=== PATIENT | female | born 2000 | race Caucasian/White ===

== ENCOUNTER 2018-03-17 15:24 | Inpatient (IN) ==
[2018-03-17] MEDS ORDERED: Tetanus/Diphtheria Toxoid Adult Vaccine Inj 0.5 ML Vial IM ONE (17:13)
--- NOTE | 2018-03-17 17:14 | ED ---
HPI General Chief Complaint: Psychiatric Symptoms Stated Complaint: eval Time Seen by Provider: 03/17/18 16:11 Source: patient Mode of arrival: ambulatory Limitations: no limitations History of Present Illness HPI Narrative: 17-year-old female presents to the emergency department voluntarily for psychological evaluation. Says she has had depression since she was about 4 years old and over the past couple months it is worsened, with worsening over the past 2 weeks. She says she is "not feeling safe by myself." She has been self cutting more than normal. Reports feeling suicidal. Does not have a specific plan. Says she thinks of all possibilities and chances to harm herself. Denies homicidal ideations. Reports history of suicidal attempt by overdosing multiple times. Denies auditory or visual hallucinations. Denies chest pain, shortness breath, abdominal pain, nausea, vomiting, fevers, change in stool. Says her urine appears cloudy, but she does not know if it is coming from her vagina or if it is her urine. She says she may have abnormal vaginal discharge, but cannot answer yes or no. Denies abnormal vaginal odor. Says her depression is aggravated by cutting herself. She says she thinks about what she did and then it makes her more depressed. No known relieving factors. Symptoms are moderate to severe in severity. Onset unknown. Duration chronic. No known allergies. No psychiatrist. No primary care provider. History of depression, bipolar disorder. Denies other significant past medical history. Has no other medical complaints. No other modifying factors or associated signs and symptoms. Related Data Allergies Allergy/AdvReac Type Severity Reaction Status Date / Time No Known Allergies Allergy Uncoded 07/10/16 19:46 Review of Systems ROS: all other systems reviewed are negative [facility] Social History Social History Substance History: Active Abuse Second Hand Smoke Exposure: Yes Smoking Status: Never smoker Tobacco Type: Cigarettes How Often Do You Have a Drink Containing Alcohol: Never Recent Travel in [facility] within the Last 8 Weeks: No Recent Out of Country Travel within the Last 8 Weeks: No Substance Abuse Detail LSD, Mushrooms: Substance Use Status: Active Route Used Substance Abuse: By Mouth Reason for Use: Feels Good Marijuana: Substance Use Status: Active Route Used Substance Abuse: Inhalation Reason for Use: Feels Good Exam Narrative Exam Narrative: GENERAL: Well-nourished, well-developed female patient , in no acute distress SKIN: Warm and dry. Right anterior thigh with multiple superficial cuts. No drainage, no surrounding cellulitis. No signs of infection. HEAD: Atraumatic. Normocephalic. EYES: Pupils equal and round. ENT: Mucosa pink and moist. NECK: Supple. Trachea midline. CARDIOVASCULAR: Regular rate and rhythm. No murmur appreciated. RESPIRATORY: No accessory muscle use. Clear to auscultation. Breath sounds equal bilaterally. GASTROINTESTINAL: Abdomen soft, non-tender, nondistended. Hepatic and splenic margins not palpable. Bowel sounds are active 4 quadrants. MUSCULOSKELETAL: No obvious deformities. No clubbing. No cyanosis. No edema. BACK: No CVA tenderness. NEUROLOGICAL: Awake and alert. Oriented 3. No obvious cranial nerve deficits. Motor grossly within normal limits. Normal speech. Moves all extremities. 5/5 strength to all extremities. PSYCHIATRIC: No delusional thought processes. No hallucinations. Course Initial Documented Vital Signs Temperature 99.4 F 03/17/18 15:26 Pulse Rate 130 H 03/17/18 15:26 Respiratory Rate 17 03/17/18 15:26 Blood Pressure 132/72 03/17/18 15:26 Pulse Oximetry 97 03/17/18 15:26 Last Documented Vital Signs Temperature 98.5 F 03/20/18 06:07 Pulse Rate 73 03/20/18 06:07 Respiratory Rate 16 03/20/18 06:07 Blood Pressure 97/51 L 03/20/18 06:07 Pulse Oximetry 98 03/20/18 06:07 Medical Decision Making [facility] Narrative Medical decision making narrative: Patient presents voluntarily. Physical examination and vital signs are essentially unremarkable. Patient is complaining of cloudy urine and possibility of vaginal discharge. I will check a urinalysis and check a urine chlamydia/gonorrhea. Psych screen has been ordered. If the laboratory results are unremarkable, the patient will be medically cleared for psychiatric evaluation and disposition. Medical Screen Exam Complete: Yes Emergency Medical Condition: Yes Differential Diagnosis Differential Diagnosis: Depression, suicidal ideation, UTI, chlamydia, gonorrhea , medical clearance for psychiatric evaluation Lab Data Result diagrams: 03/17/18 17:00 03/17/18 17:00 POC Results POC Urine Results Negative Lab Results 03/17/18 03/17/18 03/17/18 Range/Units 17:00 17:00 17:00 WBC 10.8 (4.0-11.0) th/mm3 RBC 4.54 (4.00-5.30) mil/mm3 Hgb 12.8 (11.6-15.3) gm/dL Hct 37.5 (35.0-46.0) % MCV 82.6 (80.0-100.0) fL MCH 28.1 (27.0-34.0) pg MCHC 34.0 (32.0-36.0) % RDW 19.0 H (11.6-17.2) % Plt Count 268 (150-450) th/mm3 MPV 9.2 (7.0-11.0) fL Neut % (Auto) 72.0 H (16.0-70.0) % Lymph % (Auto) 18.4 (9.0-44.0) % King % (Auto) 7.8 (0.0-8.0) % Eos % (Auto) 0.8 (0.0-4.0) % Baso % (Auto) 1.0 (0.0-2.0) % Neut # (Auto) 7.8 H (1.8-7.7) th/mm3 Lymph # (Auto) 2.0 (1.0-4.8) th/mm3 King # (Auto) 0.8 (0.0-0.9) th/mm3 Eos # (Auto) 0.1 (0.0-0.4) th/mm3 Baso # (Auto) 0.1 (0.0-0.2) th/mm3 WBC Differential . Differential Comment Auto diff final Sodium (136-145) meq/L Potassium (3.5-5.1) meq/L Chloride (98-107) meq/L Carbon Dioxide (21.0-32.0) meq/L Anion Gap (5-15) meq/L BUN (7-18) mg/dL Creatinine (0.50-1.00) mg/dL Estimated GFR (>89) mL/min Random Glucose (74-106) mg/dL Hemoglobin A1c (4.3-6.0) % Calcium (8.5-10.1) mg/dL Total Bilirubin (0.2-1.0) mg/dL AST (16-38) U/L ALT (9-42) U/L Alkaline Phosphatase (45-117) U/L Total Protein (6.4-8.2) g/dL Albumin (3.4-5.0) g/dL Triglycerides (42-150) mg/dL Cholesterol (120-200) mg/dL LDL Cholesterol, Calc (0-99) mg/dL HDL Cholesterol (40.0-60.0) mg/dL Cholesterol/HDL Ratio Ratio TSH (0.358-3.740) uIU/mL Urine Color (Yellw/Straw) Urine Clarity (Clear) Urine pH (5.0-8.5) Ur Specific [place] (1.002-1.035) Urine Protein (Neg-Trace) mg/dL Urine Glucose (UA) (Negative) mg/dL Urine Ketones (Negative) mg/dL Urine Occult Blood (Negative) Urine Nitrate (Negative) Urine Bilirubin (Negative) Urine Urobilinogen (Less than 2) mg/dL Ur Leukocyte Esterase (Negative) Urine RBC (0-3) /hpf Urine WBC (0-5) /hpf Ur Squamous Epith Cells (0-5) /hpf Urine Bacteria (None) /hpf Urine Mucus (Occasional) /lpf Micro UA Comment Urine Culture Comments Salicylates Less than 1.7 L (2.8-20.0) mg/dL Urine Opiates Screen (Neg) Acetaminophen Cancelled Ur Barbiturates Screen (Neg) Ur Amphetamines Screen (Neg) U Benzodiazepines Scrn (Neg) Urine Cocaine Screen (Neg) U Cannabinoids Screen (Neg) Serum Alcohol (0-5) mg/dL Chlam trachomat DNA PCR (Not Detect) N.gonorrhoeae DNA (PCR) (Not Detect) 03/17/18 03/17/18 03/17/18 Range/Units 17:00 20:40 23:05 WBC (4.0-11.0) th/mm3 RBC (4.00-5.30) mil/mm3 Hgb (11.6-15.3) gm/dL Hct (35.0-46.0) % MCV (80.0-100.0) fL MCH (27.0-34.0) pg MCHC (32.0-36.0) % RDW (11.6-17.2) % Plt Count (150-450) th/mm3 MPV (7.0-11.0) fL Neut % (Auto) (16.0-70.0) % Lymph % (Auto) (9.0-44.0) % King % (Auto) (0.0-8.0) % Eos % (Auto) (0.0-4.0) % Baso % (Auto) (0.0-2.0) % Neut # (Auto) (1.8-7.7) th/mm3 Lymph # (Auto) (1.0-4.8) th/mm3 King # (Auto) (0.0-0.9) th/mm3 Eos # (Auto) (0.0-0.4) th/mm3 Baso # (Auto) (0.0-0.2) th/mm3 WBC Differential Differential Comment Sodium 143 (136-145) meq/L Potassium 4.2 (3.5-5.1) meq/L Chloride 106 (98-107) meq/L Carbon Dioxide 29.9 (21.0-32.0) meq/L Anion Gap 7 (5-15) meq/L BUN 11 (7-18) mg/dL Creatinine 0.75 (0.50-1.00) mg/dL Estimated GFR Greater than 89 (>89) mL/min Random Glucose 72 L (74-106) mg/dL Hemoglobin A1c (4.3-6.0) % Calcium 9.1 (8.5-10.1) mg/dL Total Bilirubin 0.2 (0.2-1.0) mg/dL AST 12 L (16-38) U/L ALT 17 (9-42) U/L Alkaline Phosphatase 112 (45-117) U/L Total Protein 7.5 (6.4-8.2) g/dL Albumin 4.3 (3.4-5.0) g/dL Triglycerides (42-150) mg/dL Cholesterol (120-200) mg/dL LDL Cholesterol, Calc (0-99) mg/dL HDL Cholesterol (40.0-60.0) mg/dL Cholesterol/HDL Ratio Ratio TSH 0.328 L (0.358-3.740) uIU/mL Urine Color (Yellw/Straw) Urine Clarity (Clear) Urine pH (5.0-8.5) Ur Specific [place] (1.002-1.035) Urine Protein (Neg-Trace) mg/dL Urine Glucose (UA) (Negative) mg/dL Urine Ketones (Negative) mg/dL Urine Occult Blood (Negative) Urine Nitrate (Negative) Urine Bilirubin (Negative) Urine Urobilinogen (Less than 2) mg/dL Ur Leukocyte Esterase (Negative) Urine RBC (0-3) /hpf Urine WBC (0-5) /hpf Ur Squamous Epith Cells (0-5) /hpf Urine Bacteria (None) /hpf Urine Mucus (Occasional) /lpf Micro UA Comment Urine Culture Comments Salicylates (2.8-20.0) mg/dL Urine Opiates Screen Neg (Neg) Acetaminophen Less than 2.0 L Ur Barbiturates Screen Neg (Neg) Ur Amphetamines Screen Neg (Neg) U Benzodiazepines Scrn Neg (Neg) Urine Cocaine Screen Neg (Neg) U Cannabinoids Screen Pos H (Neg) Serum Alcohol Less than 3 (0-5) mg/dL Chlam trachomat DNA PCR Not detected (Not Detect) N.gonorrhoeae DNA (PCR) Not detected (Not Detect) 03/17/18 03/18/18 03/18/18 Range/Units 23:05 08:45 08:45 WBC (4.0-11.0) th/mm3 RBC (4.00-5.30) mil/mm3 Hgb (11.6-15.3) gm/dL Hct (35.0-46.0) % MCV (80.0-100.0) fL MCH (27.0-34.0) pg MCHC (32.0-36.0) % RDW (11.6-17.2) % Plt Count (150-450) th/mm3 MPV (7.0-11.0) fL Neut % (Auto) (16.0-70.0) % Lymph % (Auto) (9.0-44.0) % King % (Auto) (0.0-8.0) % Eos % (Auto) (0.0-4.0) % Baso % (Auto) (0.0-2.0) % Neut # (Auto) (1.8-7.7) th/mm3 Lymph # (Auto) (1.0-4.8) th/mm3 King # (Auto) (0.0-0.9) th/mm3 Eos # (Auto) (0.0-0.4) th/mm3 Baso # (Auto) (0.0-0.2) th/mm3 WBC Differential Differential Comment Sodium (136-145) meq/L Potassium (3.5-5.1) meq/L Chloride (98-107) meq/L Carbon Dioxide (21.0-32.0) meq/L Anion Gap (5-15) meq/L BUN (7-18) mg/dL Creatinine (0.50-1.00) mg/dL Estimated GFR (>89) mL/min Random Glucose (74-106) mg/dL Hemoglobin A1c 5.7 (4.3-6.0) % Calcium (8.5-10.1) mg/dL Total Bilirubin (0.2-1.0) mg/dL AST (16-38) U/L ALT (9-42) U/L Alkaline Phosphatase (45-117) U/L Total Protein (6.4-8.2) g/dL Albumin (3.4-5.0) g/dL Triglycerides 185 H (42-150) mg/dL Cholesterol 134 (120-200) mg/dL LDL Cholesterol, Calc 52 (0-99) mg/dL HDL Cholesterol 45.2 (40.0-60.0) mg/dL Cholesterol/HDL Ratio 2.96 Ratio TSH (0.358-3.740) uIU/mL Urine Color Straw (Yellw/Straw) Urine Clarity Clear (Clear) Urine pH 7.0 (5.0-8.5) Ur Specific [place] 1.005 (1.002-1.035) Urine Protein Negative (Neg-Trace) mg/dL Urine Glucose (UA) Negative (Negative) mg/dL Urine Ketones Negative (Negative) mg/dL Urine Occult Blood Negative (Negative) Urine Nitrate Negative (Negative) Urine Bilirubin Negative (Negative) Urine Urobilinogen Less than 2 (Less than 2) mg/dL Ur Leukocyte Esterase Trace H (Negative) Urine RBC Less than 1 (0-3) /hpf Urine WBC 8 H (0-5) /hpf Ur Squamous Epith Cells 2 (0-5) /hpf Urine Bacteria Rare H (None) /hpf Urine Mucus Few H (Occasional) /lpf Micro UA Comment Culture not ind Urine Culture Comments Culture not ind Salicylates (2.8-20.0) mg/dL Urine Opiates Screen (Neg) Acetaminophen Ur Barbiturates Screen (Neg) Ur Amphetamines Screen (Neg) U Benzodiazepines Scrn (Neg) Urine Cocaine Screen (Neg) U Cannabinoids Screen (Neg) Serum Alcohol (0-5) mg/dL Chlam trachomat DNA PCR (Not Detect) N.gonorrhoeae DNA (PCR) (Not Detect) Discharge Plan Discharge Disposition Patient Disposition: 30 Still Patient Discharge Condition Condition: Stable Discharge Order Discharge Orders: Discharge Order (Routine); Ordered 03/20/18 Ordered By: Tacho Pandya Physicians Team ED Provider: Ani Disla ED Midlevel Provider: Roxie Oneil Primary Care Provider: Primary Care Brianna Dupree Attending Provider: Tacho Pandya Other Providers: Utilizer, High Service Status ED Status: Left Department Discharge Information Discharge Date/Time: 03/17/18 22:15
[2018-03-17 17:22] LABS: Baso # (Auto) 0.1 th/mm3 (0.0-0.2); Eos # (Auto) 0.1 th/mm3 (0.0-0.4); Eos % (Auto) 0.8 % (0.0-4.0); Hematocrit 37.5 % (35.0-46.0); Hemoglobin 12.8 gm/dL (11.6-15.3); Lymph % (Auto) 18.4 % (9.0-44.0); Mean Corpuscular Hemoglobin 28.1 pg (27.0-34.0); Mean Corpuscular Volume 82.6 fL (80.0-100.0); Mean Platelet Volume 9.2 fL (7.0-11.0); Mono # (Auto) 0.8 th/mm3 (0.0-0.9); Mono % (Auto) 7.8 % (0.0-8.0); Neut # (Auto) 7.8 th/mm3 (1.8-7.7); Platelet Count 268 th/mm3 (150-450); Red Blood Count 4.54 mil/mm3 (4.00-5.30); White Blood Count 10.8 th/mm3 (4.0-11.0)
[2018-03-17 17:41] LABS: Albumin 4.3 g/dL (3.4-5.0); Anion Gap 7 meq/L (5-15); Aspartate Aminotransferase 12 U/L (16-38); Blood Urea Nitrogen 11 mg/dL (7-18); Calcium 9.1 mg/dL (8.5-10.1); Carbon Dioxide 29.9 meq/L (21.0-32.0); Chloride 106 meq/L (98-107); Glomerular Filtration Rate Greater Than 89 mL/min (>89); Glucose,Random 72 mg/dL (74-106); Potassium 4.2 meq/L (3.5-5.1); Sodium 143 meq/L (136-145)
[2018-03-17 17:52] LABS: Alanine Aminotransferase 17 U/L (9-42); Alkaline Phosphatase 112 U/L (45-117); Thyroid Stimulating Hormone 0.328 uIU/mL (0.358-3.740); Total Protein 7.5 g/dL (6.4-8.2)
[2018-03-17] MEDS ORDERED: Aluminum/Magnesium/Simethacone Susp 30 ML UDC PO PRN (21:35)
[2018-03-17] MEDS ORDERED: Acetaminophen 325 MG Tablet PO PRN (21:35)
[2018-03-17] MEDS ORDERED: Bisacodyl 10 MG Supp RECTAL PRN (21:35)
[2018-03-17 23:27] LABS: Amphetamine Screen,Urine Neg (Neg); Barbiturate Screen,Urine Neg (Neg); Cannabinoid Screen,Urine Pos (Neg); Cocaine Screen,Urine Neg (Neg)
[2018-03-17 23:29] LABS: Bacteria,Urine Rare /hpf; Bilirubin,Urine Negative (Negative); Clarity,Urine Clear (Clear); Color,Urine Straw (Yellw/Straw); Glucose,Urine (UA) Negative (Negative); Leukocyte Esterase,Urine Trace (Negative); Mucus,Urine Few /lpf (Occasional); Nitrite,Urine Negative (Negative); Specific Gravity,Urine 1.005 (1.002-1.035); Squamous Epithelial Cell,Urine 2 /hpf (0-5)
[2018-03-17 23:33] LABS: Opiate Screen,Urine Neg (Neg)
[2018-03-18 09:28] LABS: Chol/HDL Ratio 2.96 Ratio; HDL Cholesterol 45.2 mg/dL (40.0-60.0)
[2018-03-18] MEDS: Senna/Docusate Sodium 8.6/50 MG Tablet PO SCH ×2 (09:45→21:28)
[2018-03-18] MEDS: FLUoxetine 10 MG Capsule PO SCH ×2 (13:55→13:57)
[2018-03-18 15:08] LABS: Hemoglobin A1c 5.7 % (4.3-6.0)
--- NOTE | 2018-03-18 16:23 | P.DIET ---
Nutritional Evaluation Type of nutrition evaluation: initial Nutrition screening: [place] [facility] [place] [facility] [place], history of anorexia Subjective Subjective Comments: Pt visited in her room before dinner today. Pt says she doesnt like "alot of food at one time". Pt provided diet preferences. Pt receptive to receiving [employer] [employer] w/meals. All of above discussed w/QUITA Vo. Objective - Diagnosis Depressive DO NOS - Objective [place] body weight: 52.3 kg % IBW: 90 Body Weight Used for Calculations: Actual (47.1 kg) Energy Needs - Lower Range (kCal/kg): 30 Energy Needs - Upper Range (kCal/kg): 35 Lower Limit kCal/kg (kCals): 1,413 Upper Limit kCal/kg (kCals): 1,649 Lower Limit Protein Factor (Grams per Kg): 1.2 Upper Limit Protein Factor (Grams per Kg): 1.5 Lower Protein Needs (Protein): 57 Upper Protein Needs (Protein): 71 Fluid Factor (ml/kg): 30 Estimated Fluid Needs (ml): 1,413 Dietitian Reviewed in Medical Record: Current diet, Curent medications, Intake & Output, Labs, Medical history Diet Order: Regular Objective Comments: A1C 5.7, TG 185 Assessment Assessment: Pt is at nutritional risk r/t poor po intake and history of anorexia. Variable po intake here w/25% to 100% for meals. Send [place] [employer] TID( w/8-0z whole milk = 280 kcal and 13g Protein per serving). Pt is okayed to have menu write-ins to assist w/increased po intake. Labs reviewed. Dietitian will follow. Recommendations: 1. Send [place] [employer] TID 2. Pt is okayed to have menu write-ins to assist w/increased po intake 3. Dietitian will follow Dietitian to Monitor: Lab values, Supplement acceptance, Intake & Output, Weight change, PO Intake, Medical course
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
[2018-03-19] MEDS: FLUoxetine 10 MG Capsule PO SCH (08:48)
[2018-03-19] MEDS: Senna/Docusate Sodium 8.6/50 MG Tablet PO SCH ×2 (08:48→20:11)
--- NOTE | 2018-03-19 09:57 | P.CONPSY ---
Provisional Diagnosis Admission Date: March 17, 2018 21:07 [place] I.: 1. Bipolar disorder, depressed 2. History of eating disorder and OCD per patient [place] II.: 1. Suspected borderline personality disorder History of Present Illness Service: Psychiatry Consult date: 03/19/18 Primary Care Provider: No Primary Care Physician History of Present Illness: Ms. Guevara is a 17-year-old female with a reported history of bipolar disorder , OCD and eating disorder who presented to the emergency department voluntarily for psychiatric evaluation. She was admitted voluntarily to the inpatient unit and was evaluated by Dr. Pandya yesterday. She subsequently initiated a right of release, and Dr. Pandya has initiated a petition for involuntary psychiatric hospitalization, and he has requested that I see the patient for a second opinion. Reviewing the electronic medical record, I note that the patient has a history of psychiatric admissions to the child psychiatric unit, most recently in 2016. Patient seen and examined with nurse. Chart reviewed. Case discussed with nursing staff. Patient presents with prominent borderline personality traits. She reports that she has been feeling depressed and complains of low energy and lack of motivation. She admits to suicidal ideation prior to admission and also notes that her nonsuicidal self injury has increased in frequency lately. Although she denies suicidal ideation at this time, it does not seem that the patient is reliable to contract for safety in her present state. No hypomanic or manic symptoms. No psychotic material. Remainder of the psychiatric ROS is negative. No acute physical complaints. Past psychiatric history: The patient reports previous diagnoses as noted above. She is not currently under the care of a psychiatrist nor does she have a psychotherapist. She reports a history of psychiatric admissions in childhood , see above. She reports a history of nonsuicidal self injury, namely cutting. She reports a history of suicide attempt by tying a rope around her neck. Family history: The patient reports that depression and bipolar disorder run in her family. Chemical dependency history: The patient admits to occasional use of cannabis and powder cocaine. Social history: Patient reports that she lives alone. She does say that she has a walker river of friends. She is not presently in a partner relationship. She has no children. The remainder of her family resides in [place]. She is studying [employer] [facility]. Review of Systems All other systems reviewed negative except as stated [facility] - History History Provided By: Patient, Medical Record - Tobacco History Second Hand Smoke Exposure: Yes Tobacco Use In Past 30 Days: Yes Smoking Status: Never smoker Tobacco Type: Cigarettes - Alcohol History How Often Do You Have a Drink Containing Alcohol: Never - Substance Use History Substance History: Active Abuse - Substance Use Type LSD, Mushrooms Status: Active Route Used: By Mouth Reason for Use: Feels Good Marijuana Status: Active Route Used: By Mouth, Inhalation Reason for Use: Feels Good - Travel History Recent Travel in the [place] Within the Last 8 Weeks: No Recent Travel Out of the Country Within the Last 8 Weeks: No Medications and Allergies Active Medications: Active Medications Acetaminophen (Tylenol) 650 mg PO Q4H PRN PRN Reason: Pain 1-5 or Temp >101F Al Hydrox/Mg Hydrox/Simethicone (Mag-Al Plus Susp Liq) 30 ml PO Q6H PRN PRN Reason: DYSPEPSIA Al Hydroxide/Mg Hydroxide (Milk Of Magnesia Liq) 30 ml PO Q12H PRN PRN Reason: Mild Constipation Bisacodyl (Dulcolax Supp) 10 mg RECTAL DAILY PRN PRN Reason: SEVERE CONSITIPATION Diphenhydramine HCl (Benadryl) 50 mg PO HS PRN PRN Reason: INSOMNIA Last Admin: 03/18/18 22:32 Dose: 50 mg Diphenhydramine HCl (Benadryl Inj) 50 mg IM Q6H PRN PRN Reason: For mild anxiety and/or EPS Diphenhydramine HCl (Benadryl Inj) 50 mg IM HS PRN PRN Reason: INSOMNIA Diphenhydramine HCl (Benadryl) 50 mg PO Q6H PRN PRN Reason: For mild anxiety and/or EPS Fluoxetine HCl (Prozac) 10 mg PO DAILY [facility] Last Admin: 03/19/18 08:48 Dose: Not Given Hydroxyzine HCl (Atarax) 50 mg PO Q6H PRN PRN Reason: ANXIETY Lactulose (Lactulose Liq) 30 ml PO DAILY PRN PRN Reason: SEVERE CONSITIPATION Nicotine (Habitrol 21 Mg Patch.24 Hr) 1 patch T-DERMAL DAILY [facility] Last Admin: 03/19/18 08:48 Dose: Not Given Olanzapine (Zyprexa) 5 mg PO HS [facility] Last Admin: 03/18/18 21:30 Dose: Not Given Senna/Docusate Sodium (Piedad-Colace) 1 tab PO BID ANISHA Last Admin: 03/19/18 08:48 Dose: Not Given Sennosides (Senokot) 17.2 mg PO Q12H PRN PRN Reason: Moderate Constipation Allergies Allergy/AdvReac Type Severity Reaction Status Date / Time No Known Allergies Allergy Uncoded 07/10/16 19:46 Exam Vital signs: Vital Signs 03/18/18 17:00 03/19/18 05:50 Temperature 97.9 F 98.1 F Pulse Rate 64 56 L Respiratory Rate 16 16 Blood Pressure 106/63 107/53 L Pulse Oximetry 98 100 Narrative: Physical examination completed by ED provider. On my examination today, the patient appears to be in no acute physical distress. I do note that she has numerous tattoos and piercings. No motor abnormalities noted. Laboratories and vital signs reviewed: Laboratory Tests 03/17/18 03/17/18 03/17/18 17:00 17:00 23:05 WBC 10.8 Hgb 12.8 Plt Count 268 Sodium 143 Potassium 4.2 Chloride 106 Carbon Dioxide 29.9 Anion Gap 7 BUN 11 Creatinine 0.75 Estimated GFR Greater than 89 AST 12 L ALT 17 Alkaline Phosphatase 112 TSH 0.328 L U Cannabinoids Screen Pos H Serum Alcohol Less than 3 Urinalysis results reviewed. Mental Status Examination Appearance: Appropriate Consciousness: Alert Orientation: x4 Motor Activity: Normal gait Speech: Unremarkable Language: Adequate Fund of Knowledge: Adequate Attention and Concentration: Adequate Memory: Unremarkable Mood: Other (Depressed) Affect: Appropriate Thought Process & Associations: Intact, Linear Thought Content: Appropriate Hallucination Type: None Delusion Type: None Suicidal Ideation: No (Unreliable to contract for safety) Suicidal Plan: No Suicidal Intention: No Homicidal Ideation: No Homicidal Plan: No Homicidal Intention: No Insight: Poor Judgment: Poor Assessment and Plan - Assessment (1) Bipolar disorder current episode depressed Code(s): F31.30 - Bipolar disorder, current episode depressed, mild or moderate severity, unspecified Status: Acute - Plan Plan: Given the circumstances of the patient's presentation here and her presentation on my examination today, I concur with Dr. Pandya that the patient meets criteria for involuntary psychiatric hospitalization under the Palmer act. Patient has several risk factors for ongoing self-harm and requires monitoring on the inpatient unit for ongoing impairments in safety. I have completed the second opinion paperwork. Further care as per Dr. Pandya. Thank you very much for this consultation. Signing off. Justification for Continued Inpatient Stay: Per Dr. Pandya (1) Bipolar disorder current episode depressed Qualifiers: Current episode severity: severe Psychotic features: without psychotic features Qualified Code(s): F31.4 - Bipolar disorder, current episode depressed , severe, without psychotic features
--- NOTE | 2018-03-19 16:09 | P.PNPSY ---
Subjective Remarks: Patient seen for follow, chart reviewed. Discussion nursing staff reported the patient refuse medications yesterday, had signed right of release document yesterday, 8 portion of her breakfast and saw dietitian yesterday. Patient was found lying hospital bed with covers over her head and noted be tearful during interview. Patient states that she would like to be discharged home stating that she does not want to engage and pharmacological interventions stating that she only wants to put "natural things in my body". Patient states that she did not feel comfortable unit being around "crazy people" and that he is not able to use coping skills which she feels are helpful such as being able to sit in the shower for hours or be able to journal. Recommendations to have patient have access to journals was offered the patient continues to refuse wanting to continue hospitalization. Patient was reminded of recent psychosocial stressors as well as ongoing current depressive symptoms as well as suicidal ideation which patient had a nurse initially which concern for elevated risk of self-harm is present at this time which she acknowledged but continues to refuse to want to continue hospitalization. Due to current acute risk for self- harm patient was advised that she will be petition for involuntary hospitalization for further observation despite her refusing to start treatment to be able to observe her mood and behavior and to attempt to try the safe discharge plan with treatment team and patient. Review of Systems All other systems reviewed negative except as stated in HPI Mental Status Examination Appearance: Appropriate Consciousness: Alert Orientation: x4 Motor Activity: Normal gait Speech: Unremarkable Language: Adequate Fund of Knowledge: Adequate Attention and Concentration: Adequate Memory: Unremarkable Mood: Other (Depressed) Affect: Appropriate Thought Process & Associations: Intact, Linear Thought Content: Appropriate Hallucination Type: None Delusion Type: None Suicidal Ideation: No (Unreliable to contract for safety) Suicidal Plan: No Suicidal Intention: No Homicidal Ideation: No Homicidal Plan: No Homicidal Intention: No Insight: Poor Judgment: Poor Assessment and Plan - Assessment (1) Bipolar disorder current episode depressed Code(s): F31.30 - Bipolar disorder, current episode depressed, mild or moderate severity, unspecified Status: Acute - Plan Plan: Patient this time continues to refuse engaging pharmacological intervention, also currently refusing to be connected to outpatient services to include psychiatrist and therapist despite patient benefiting from mental health follow- up level and services for support. Petition for involuntary hospital she will be started, we will request second opinion. Patient will be continued on observation of mood and behavior. Treatment he will continue to engage patient to reconsider starting treatment as well as requesting [facility] professional healthcare representative to clinic patient to services. Discharge planning in progress. Justification for Continued Inpatient Stay: At risk of further decompensation a lower level care. (1) Bipolar disorder current episode depressed Qualifiers: Current episode severity: severe Psychotic features: without psychotic features Qualified Code(s): F31.4 - Bipolar disorder, current episode depressed , severe, without psychotic features
--- NOTE | 2018-03-19 19:52 | ECG ---
Date Performed: 03/18/2018 Time Performed: 12:15:37 PTAGE: 17 years EKG: Sinus rhythm BORDERLINE RIGHT AXIS DEVIATION BORDERLINE ECG PREVIOUS TRACING : 02/14/2015 20.18 Since the previous tracing, no significant change noted DOCTOR: Ernesto Gusman Interpretating Date/Time 03/19/2018 19:50:07
[2018-03-20] MEDS: Senna/Docusate Sodium 8.6/50 MG Tablet PO SCH (08:25)
[2018-03-20] MEDS: FLUoxetine 10 MG Capsule PO SCH (08:25)
--- NOTE | 2018-03-20 21:21 | P.DSPSY ---
Psychiatry Discharge Summary Inpatient Psychiatric care?: Yes Advance Directives: No Mental Health Advance Directive: No Health Care Proxy: No - Admission Admission Date: March 17, 2018 21:07 - Admission Diagnosis (1) Bipolar disorder current episode depressed Code(s): F31.30 - Bipolar disorder, current episode depressed, mild or moderate severity, unspecified Brief History: Patient is a 17-year-old woman, single, no children, unemployed, domiciled alone, currently in school, with a past psychiatric history of bipolar disorder, OCD and eating disorder (anorexia) as per patient, multiple psychiatric admissions, multiple suicide attempts, history of self-injurious behavior via cutting, with a substance use history significant for polysubstance use (marijuana, cocaine, ecstasy), who presented to the ED reporting worsening of depression for the past couple of months especially for the past 2 weeks with recent self-injurious behavior via cutting along with suicidal ideations which patient was admitted to the inpatient psychiatry for further evaluation and management discussion with nursing staff reported the patient mostly in bed asleep minimally interactive with staff and not participatory and activities. Patient was found lying hospital bed asleep was able to wake up and engage in interview today. Patient states that recently she had been feeling more depressed, with decreased sleep, energy and concentration with her mood being "up and down but down mostly", along with worsening of suicide ideations for the past couple of months which patient recently also had been starting to use substances such as cocaine, ecstasy, marijuana and alcohol which she denied use prior as well as increased cutting behavior. Patient also mentions having had a recent suicide attempt 2 months ago where she tied a rope around her neck with multiple knots and "almost blacked out" which boyfriend at that time had intervened. Patient states that she recently has stay with her father 3 weeks ago as he had been going through alcohol withdrawal as well as taking care of her niece and nephew for her brother at that time as well. Patient states for the past couple of months she has been having significant stressors to include being behind in school, worrying about her dad's health and having reported having ended a relationship with her boyfriend who had moved out of her apartment 2 months ago. Patient states that she has not been in treatment since the age of 16 after she had a shot of foster care as well as reporting having increased purging recently as she has reported previous diagnoses of anorexia. Patient this time reports feeling "tired" denying any suicide ideation at this time stating "not more than usual", denying any perceptional services or delusions at this time. Discussion and restarted patient on treatment was reviewed and agreed to begin treatment to address bipolar depression as well as have a dietitian consulted to address ongoing nutritional deficiency secondary to her eating disorder. Family psychiatric history: Patient reports multiple family members with bipolar disorder and depression diagnoses, no suicides in the family Past psychiatric history: Previous psychiatric images of bipolar disorder, OCD, eating disorder (anorexia) as per patient, multiple psychiatric admissions last time being more than 1 year ago, multiple suicide attempts last time being 2 months ago as stated above, history of self-injurious behavior via cutting last time being 2 days ago. Patient has no outpatient mental health follow-up provider stating last time she was seen by mental health provider was at the age of 15. Substance use history: Alcohol use "sometimes" use couple times a month denies any blackouts or DTs, reports daily marijuana use, cocaine use last time being prior to admission usually 1 time per month, ecstasy use last time prior to admission usually once per month, denies any detox or rehabilitation programs. Allergies: NKDA Social history: Single, no children, unemployed, lives alone, denies any background or access to firearms. Patient reports legal history of assault charges as a minor, currently in school. Tobacco Use In Past 30 Days: Yes How Often Do You Have a Drink Containing Alcohol: Never Hospital Course: Patient is a 17-year-old woman, single, no children, unemployed, domiciled alone, currently in school, with a past psychiatric history of bipolar disorder, OCD and eating disorder (anorexia) as per patient, multiple psychiatric admissions, multiple suicide attempts, history of self-injurious behavior via cutting, with a substance use history significant for polysubstance use (marijuana, cocaine, ecstasy), who presented to the ED reporting worsening of depression for the past couple of months especially for the past 2 weeks with recent self-injurious behavior via cutting along with suicidal ideations which patient was admitted to the inpatient psychiatry for further evaluation and management. Patient upon admission had refused to start medications and although was admitted voluntarily and had arrived to the hospital voluntarily had had signed a right of release document but due to concern of safety at that time was converted to involuntary admission for further observation and safety. Patient was not observed to have endorsed nor displayed any behavior concerning of self harm, denied any SI since admission and was noted to perform ADLs while on the unit. Patient had allowed contact with her aunt and uncle who have been patients guardian from the age of 4y/o to 15 y/o and reported being supportive and continued intention to provide support to the patient upon discharge. She was observed by staff to not have had any behavioral disturbances, not having made any suicidal or homicidal statements and maintained stable mood through admission and was noted to participate with staff adequately. Upon discharge patient stated that she was feeling good, reported willing to explore options of treatment in the future and accepted referral to outpatient mental health clinic, denied any SI, HI, perceptual disturbances or delusions. Weighing the acute, chronic, and protective factors and based on the available evidence, I financial dealers to a reasonable degree of medical certainty that the patient is at low imminent risk of harm to self or others from a mental illness as defined under the Palmer act and his level of function is adequate as observed on the unit for planned level of outpatient care. Patient will carry a chronic risk for self harm due to prominent borderline personality traits which would not be mitigated with further inpatient stay. She was counseled regarding warning signs for need to return to the psychiatric emergency room as part of a general safety plan. Patient advised to call 911 or go nearest ED in case of emergency. Patient agreed with plan. - Discharge Discharge Date: 03/20/18 - Discharge Diagnosis (1) Bipolar disorder current episode depressed Code(s): F31.30 - Bipolar disorder, current episode depressed, mild or moderate severity, unspecified Status: Acute (2) Borderline personality disorder Code(s): F60.3 - Borderline personality disorder Status: Acute Discharge Disposition: Home - Discharge Instructions Discharge Diet: Regular Diet Activities You Can Perform: Regular- No Restrictions - Discharge Time > 30 minutes Mental Status Examination Appearance: Appropriate Consciousness: Alert Orientation: x4 Motor Activity: Normal gait Speech: Unremarkable Language: Adequate Fund of Knowledge: Adequate Attention and Concentration: Adequate Memory: Unremarkable Mood: Other (Depressed) Affect: Appropriate Thought Process & Associations: Intact, Linear Thought Content: Appropriate Hallucination Type: None Delusion Type: None Suicidal Ideation: No Suicidal Plan: No Suicidal Intention: No Homicidal Ideation: No Homicidal Plan: No Homicidal Intention: No Insight: Poor Judgment: Poor Discharge/Advance Care Plan - Results Vital Signs: Last Vital Signs Temp 98.5 F 03/20/18 06:07 Pulse 73 03/20/18 06:07 Resp 16 03/20/18 06:07 BP 97/51 L 03/20/18 06:07 Pulse Ox 98 03/20/18 06:07 Lab Results: Laboratory Results Hemoglobin A1c 5.7 % (4.3-6.0) 03/18/18 08:45 Triglycerides 185 mg/dL (42-150) H 03/18/18 08:45 Cholesterol 134 mg/dL (120-200) 03/18/18 08:45 LDL Cholesterol, Calc 52 mg/dL (0-99) 03/18/18 08:45 HDL Cholesterol 45.2 mg/dL (40.0-60.0) 03/18/18 08:45 TSH 0.328 uIU/mL (0.358-3.740) L 03/17/18 17:00 Urine Culture Comments Culture not ind 03/17/18 23:05 Summary of Procedures: none Pending Results: None - Medications Number of antipsychotic medications at discharge: 0 - Discharge Care Plan Goals to Promote Your Health: * To prevent worsening of your condition and complications * To maintain your health at the optimal level Directions to Meet Your Goals: Take your medications as prescribed Follow your dietary instruction Follow activity as directed Keep your appointments as scheduled Take your immunizations and boosters as scheduled If your symptoms worsen call your PCP, if no PCP go to Urgent Care Center or Emergency Room For 19/02 questions related to your inpatient stay or results of tests pending at discharge, please contact Dr. Tacho Pandya MD at Smoking is Dangerous to Your Health. Avoid second hand smoking (1) Bipolar disorder current episode depressed Qualifiers: Current episode severity: severe Psychotic features: without psychotic features Qualified Code(s): F31.4 - Bipolar disorder, current episode depressed , severe, without psychotic features (1) Bipolar disorder current episode depressed Qualifiers: Current episode severity: severe Psychotic features: without psychotic features Qualified Code(s): F31.4 - Bipolar disorder, current episode depressed , severe, without psychotic features
== END 2018-03-20 15:00 | disposition home or self-care (01) ==
LOC: NEPJ 15:24 → NEDA 21:07 → H260 22:15
PROVIDERS: ADMIT Student in an Organized Health Care Education/Training Program; ATTEND Student in an Organized Health Care Education/Training Program